=== PATIENT | female | born 1995 | race Asian ===

== ENCOUNTER 2024-02-14 03:35 | Inpatient (IN) | payer OTHER ==
[2024-02-14] VITALS (60 sets, daily range): BP systolic 95–139; BP diastolic 56–87; PULSE 80–122; TEMP 97.6–98.2
[~2024-02-14] VITALS: Ht 154.9 cm; Wt 77.7 kg
[2024-02-14] MEDS ORDERED: LR 1,000 ML IV PRN (03:45)
--- NOTE | 2024-02-14 03:53 | NUR ---
Presents to L&D, ambulatory, accompanied by spouse. Note gross rupture of membranes, per patient report @ 0230. Clear fluid noted. Reports positive movement. Reports some contractions on the drive here. Denies need for pain intervention at this time. Denies any vaginal bleeding.
[2024-02-14] MEDS ORDERED: LR & Oxytocin 500 ML IV SCH (04:15)
[2024-02-14] MEDS ORDERED: LR 1,000 ML IV SCH (04:15)
[2024-02-14 04:35] LABS: BASO % 0.5 % (0.0-2.0); EOS # 0.1 K/mm3 (0.0-0.7); GRAN % 73.1 % (42.2-75.2); HEMOGLOBIN 13.1 g/dl (12.5-16.0); LYMPH # 1.3 K/mm3 (1.2-3.4); LYMPH % 16.2 % (20.0-51.0); MEAN CELL VOLUME 92 fl (80.0-100.0); MEAN CORPUSCULAR HEMOGLOBIN 33 pg (27-31); MEAN CORPUSCULAR HGB CONC 36 g/dl (33.0-37.0); MONO # 0.7 K/mm3 (0.1-0.6); MONO % 8.4 % (1.7-9.3); PLATELET COUNT 262 K/mm3 (130-400); RED BLOOD COUNT 3.97 M/mm3 (4.10-5.30); REDCELL DISTRIBUTION WIDTH-CV 13.1 % (11.5-14.5)
[2024-02-14 04:37] LABS: HEMATOCRIT 36.5 % (37.0-47.0)
[2024-02-14] MEDS ORDERED: PRENATAL TABLET PO (04:56)
[2024-02-14] MEDS ORDERED: NATURAL MAGNES200 MG PO (04:57)
[2024-02-14] MEDS ORDERED: ROPivacaine PF 0.2% 200 ML IV ONE (10:51)
--- NOTE | 2024-02-14 11:04 | NUR ---
PT. SITTING UP ON EDGE OF BED FOR EPIDURAL PLACEMENT DIFFICULTY TRACING FHTS AND CONTRACTIONS DURING THIS TIME. KARLY RICHARD PLACES EPIDURAL AND AMDINSTERS TEST DOSE AT 1104. PT. TOLERATES PROCEDURE WELL.
[2024-02-14] MEDS ORDERED: diphenhydrAMINE 25 MG CAP PO PRN (11:15)
[2024-02-14] MEDS ORDERED: diphenhydrAMINE 50 MG/ML 1 ML VIAL IV PRN (11:15)
[2024-02-14] MEDS ORDERED: Naloxone 0.4 MG/ML VIAL IV PRN ×2 (11:15→20:45)
[2024-02-14] MEDS ORDERED: ePHEDrine 50 MG/10 ML VIAL IV PRN (11:15)
[2024-02-14] MEDS ORDERED: Ondansetron 4 MG/2 ML VIAL IV PRN (11:15)
--- NOTE | 2024-02-14 18:32 | NUR ---
PT REQUESTS TO TAKE A BREAK FROM PUSHING. REPOSTIONED TO RIGHT LATERAL WITH LEFT LEG IN STIRRUP. WILL BEGIN PUSHING AGAIN IN APPROXIMATELY 15 MINUTES. ROLES ON UNIT, UPDATED ON PLAN OF CARE.
--- NOTE | 2024-02-14 18:51 | NUR ---
PT REPOSTIONED TO SEMIFOWLERS. PUSHING RESUMED WITH THIS NURSE AT BEDSIDE.
--- NOTE | 2024-02-14 19:02 | NUR ---
1901- DR. VIRGEN IN ROOM TO EVALUATE PT'S PUSHING EFFORTS. DR. VIRGEN PERFORMS SVE, STATES THAT BABY IS OP. EDUCATES PT THAT THIS POSITION MAY REQUIRE LONGER PUSHING BUT THAT BABY MAY BE DELIVERED IN THIS POSITION. PT VERBALIZES UNDERSTANDING. DR. VIRGEN OUT OF ROOM 1903. PT REPOSITIONED TO LEFT LATERAL AND INSTRUCTED ON SIDE LYING PUSHING TO ASSIST WITH ROTATION OF THE HEAD TO A MORE OPTIMAL POSITION. PT VERBALIZES UNDERSTANDING. PUSHING EFFORTS CONTINUE IN LEFT SIDE LYING.
--- NOTE | 2024-02-14 19:18 | NUR ---
PT REPOSTIONED TO RIGHT SIDE LYING, PUSHING EFFORTS CONTINUE IN THIS POSITION.
--- NOTE | 2024-02-14 19:45 | NUR ---
1931- REPOSTIONED TO SEMIFOWLERS, PUSHING CONTINUES IN THE POSITION. 1939- THIS NURSE OUT OF ROOM TO UPDATE DR. VRIGEN WHO REMAINS ON UNIT. NOTIFIED THAT PT IS PUSHING WELL BUT GETTING TIRED, MINIMAL MOVEMENT NOTED SINCE MY ARRIVAL TO THE UNIT AT 1814. PT WOULD LIKE TO KNOW MORE ABOUT VACUUM ASSISTED DELIVERY. DR. VIRGEN STATES THAT SHE WILL COME IN TO EVAULATE AND SPEAK TO PT ABOUT FURTHER OPTIONS FOR DELIVERY.
--- NOTE | 2024-02-14 20:25 | NUR ---
1949- DR. VIRGEN IN ROOM TO EVALUATE PUSHING EFFORTS. DISCUSSES RISKS AND BENEFITS OF [facility] OR FORCEP ASSISTED DELIVERY. EDUCATED THAT IF PT CHOOSES ONE OF THESE OPTIONS AND IT IS UNSUCCESSFUL THAT A C/S WOULD BE NECESSARY FOR DELIVERY. PT AND SPOUSE VERBALIZE UNDERSTANDING AND AGREE TO ATTEMPT VACUUM ASSISTED DELIVERY. NSY AND CHARGE NURSES NOTIFED AND IN ROOM FOR VAC ATTEMPT. BED BROKEN DOWN FOR DELIVERY. 1955- RED MARLINE USED TO EMPTY BLADDER, SCANT URINE OUT. 1956- VACUUM PLACED BY DR. VIRGEN, NO PRESSURE APPLIED AT THIS TIME. 1957- CONTRACTION BEGINS AND PRESSURE APPLIED TO THE GREEN. VAC REMAINS IN PLACE THROUGHOUT THE CTX, PT PUSHES TO A COUNT OF TEN X3. GOOD MATERNAL PUSHING EFFORTS NOTED WITH GOOD MOVEMENT OF THE HEAD. PRESSURE RELEASED AFTER APPROXIMATELY 35 SECONDS. 1999- CONTRACTIONS BEGINS AND PRESSURE APPLIED TO THE GREEN. VAC REMAINS IN PLACE THROUGHOUT THE CTX, GOOD MATERNAL PUSHING EFFORTS NOTED WITH GOOD MOVEMENT OF THE HEAD. PT PUSHES TO A COUNT OF TEN X2, ON THIRD PUSH POP OFF OCCURS. PRESSURE OFF AFTER APPROXIMATELY 30 SECONDS. 2001- CONTRACTION BEGINS AND PRESSURE APPLIED TO THE GREEN. VAC REMAINS IN PLACE THROUGHOUT THE CTX, GOOD MATERNAL PUSHING EFFORTS NOTED WITH GOOD MOVEMENT OF THE HEAD. PT PUSHES TO A COUNT OF TEN X2, ON THIRD PUSH POP OFF OCCURS. PRESSURE OFF AFTER APPROXIMATELY 30 SECONDS. 2004- CONTRACTION BEGINS AND PRESSURE APPLIED TO THE GREEN. VAC REMAINS IN PLACE THROUGHT THE CTX. GOOD MATERNAL PUSHING EFFORTS CONTINUED WITH GOOD MOVEMENT OF THE HEAD. PT PUSHES TO A COUNT OF TEN X3. PRESSURE RELEASED AFTER APPROXIMATELY 35 SECONDS. 2007- CONTRACTION BEGINS AND PRESSURE APPLIED TO THE GREEN. PT PUSHES TO COUNT OF TEN, HEAD DELIVERS. VAC IMMEDIATELY REMOVED. VAC ASSISTED DELIVERY OF VIABLE BABY BOY. SPONTANEOUS CRY NOTED. BABY TO MOTHER'S ABDOMEN. CORD CLAMPED BY DR. VIRGEN AND CUT BY FATHER OF BABY. BABY DRIED AND STIMULATED, BABY CARES ASSUMED BY ENEDELIA BARRON. 2011- SPONTANEOUS DELIVERY OF INTACT PLACENTA OVER 4TH DEGREE LACERATION. PITOCIN STARTED AT 333ML/HR PER PROTOCOL. 2012- DR. VIRGEN AGAIN EMPTIES BLADDER WITH RED MARLINE. 2013- DR. VIRGEN BEGINS REPAIR OF 4TH DEGREE LACERATION. 2024- RECOVERY STARTED.
[2024-02-14] MEDS ORDERED: Ibuprofen 800 MG TAB PO SCH (20:45)
[2024-02-14] MEDS ORDERED: Acetaminophen 500 MG TAB PO SCH (20:45)
[2024-02-14] MEDS ORDERED: Mag/Al Hydrox/Simeth Susp 30 ML CUP PO PRN (20:45)
[2024-02-14] MEDS ORDERED: Loratadine 10 MG TAB PO PRN (20:45)
[2024-02-14] MEDS ORDERED: Measles/Mumps/Rubella Virus Vaccine Live w Diluent 0.5 ML VIAL SQ SCH (20:45)
[2024-02-14] MEDS ORDERED: Witch Hazel 50% Pads Bulk TUB TP PRN (20:45)
[2024-02-14] MEDS ORDERED: oxyCODONE 5 MG TAB PO PRN (20:45)
[2024-02-14] MEDS ORDERED: Phenylephrine/Mineral Oil/Petrolatum 57 GM TUBE RC PRN (20:45)
[2024-02-14] MEDS ORDERED: traZODone 50 MG TAB PO PRN (21:00)
[2024-02-14] MEDS ORDERED: Magnes Hydrox (MOM) 80 MG/ML 30 ML CUP PO SCH (21:00)
--- NOTE | 2024-02-14 23:45 | NUR ---
2330- PT AMBULATORY TO THE BATHROOM. IMMEDIATELY AFTER SITTING DOWN ON THE TOILET PT STATES THAT SHE FEELS LIGHTHEADED AND HAS RINGING IN HER EARS. Julio Cesar ELY, RN, AND Praveen PULIDO RN IN BATHROOM TO ASSIST. PERICARE QUICKLY COMPLETED, CLEAN ICEPACK, PERIPAD, MESH UNDERWEAR, AND GOWN APPLIED. ASSISTED PT ONTO JOSEFA CANALES AND MOVED TO ROOM. PT WAS UNABLE TO VOID AT THIS TIME. EDUCATED THAT PT IS TO CALL FOR ASSISTANCE PRIOR TO GETTING UP TO THE BATHROOM, UNDERSTANDING VERBALIZED. PT DENIES PAIN AT THIS TIME. ORIENTED TO ROOM. PT DENIES QUESTIONS/CONCERNS AT THIS TIME.
[2024-02-15 05:28] VITALS: BP 107/70; PULSE 90; TEMP 97.5
[2024-02-15] MEDS ORDERED: Sennosides/Docusate 8.6-50 MG TAB PO SCH (08:00)
[2024-02-15 08:15] VITALS: BP 97/66; PULSE 95; TEMP 97.7
[2024-02-15] MEDS ORDERED: Prenatal Vitamins/Iron/FA TAB PO SCH (09:00)
--- NOTE | 2024-02-15 09:46 | NUR ---
Initial visit; Parents thanked Costuming Supervisor for offering congratulations and God's blessings for the of their son. Costuming Supervisor thanked family for choosing [facility].
[2024-02-15 16:00] VITALS: BP 112/70; PULSE 87; TEMP 98
[2024-02-15 21:30] VITALS: BP 102/66; PULSE 90; TEMP 98
[2024-02-16 07:05] VITALS: BP 93/60; PULSE 82; TEMP 98
[2024-02-16] MEDS ORDERED: IBU800 M1 PO (08:24)
[2024-02-16] MEDS ORDERED: ROXICODONE 55 MG/TAB PO (08:24)
== END 2024-02-16 13:40 | disposition home or self-care (01) | DRG 768 ==
LOC: LDRO 03:35 → LDR 04:00 → OB 04:00
PROVIDERS: Obstetrics & Gynecology; ADMIT Student in an Organized Health Care Education/Training Program
PROC: 10D07Z6 Extraction of Products of Conception, Vacuum, Via Natural or Artificial Opening (ICD-10-PCS; principal; 2024-02-14)
PROC: 0DQP0ZZ Repair Rectum, Open Approach (ICD-10-PCS; 2024-02-14)
DX: O34.83 Maternal care for other abnormalities of pelvic organs, third trimester (principal); Z37.0 Single live birth; O70.3 Fourth degree perineal laceration during delivery; N83.202 Unspecified ovarian cyst, left side; Z3A.39 39 weeks gestation of pregnancy; O69.81X0 Labor and delivery complicated by cord around neck, without compression, not applicable or unspecified; O75.81 Maternal exhaustion complicating labor and delivery
CPT/HCPCS: J2590; J2795; J7120